=== PATIENT | female | born 1990 | race Caucasian/White ===

== ENCOUNTER 2017-01-19 17:00 | Inpatient (IN) | payer OTHER ==
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
--- NOTE | ~2017-01-19 | PN ---
Unit #: [id number] #: [id number] Patient: LAMAR CONTEH [id number] [facility] [address] [place] [address] [id number] I MR#: [id number] NAME: LAMAR CONTEH ROOM: P204 Age: 26 Sex: F Admission Date: 01/19/2017 : 1990 Attending Physician: Gm Andrew M.D. Admitting Physician: Gm Andrew M.D. Primary Care Physician: Primary Care Physician Maria Dolores VERNON PROGRESS NOTES DATE 01/21/2017 DISCUSSION Ms. Conteh is a 26-year-old white female who was seen today and chart was reviewed and case was discussed with the staff. She has been showing very negative attitude and behavior. She has been wanting to sign herself out and has been yelling and screaming and appears to be poorly motivated towards treatment. MENTAL STATUS EXAMINATION Young white female who was casually dressed with fair personal hygiene, appears to be in no acute distress or discomfort. She was awake and alert with intact orientation. Her mood was anxious with congruent affect. She denies any suicidal or homicidal ideations. Her insight and judgement remains slightly impaired. TREATMENT PLAN 1. We will continue her on her current medications and treatment protocol. We will monitor her response to the medication and make further adjustments as needed. 2. We will continue to follow up. Dictated by... Carolee Bledsoe/radha TD: 01/22/2017 02:27 JOB #: [id number] Unit #: [id number] #: [id number] Patient: LAMAR CONTEH PROGRESS NOTES Page 1 of 1 X Gm Andrew MD PROGRESS NOTE
--- NOTE | ~2017-01-19 | HP ---
Unit #: [id number] #: [id number] Patient: LAMAR CONTEH [id number] [place] [address] [id number] MR#: [id number] NAME: LAMAR CONTEH ROOM: P204 Age: 26 Sex: F Admission Date: 01/19/2017 : 1990 Attending Physician: Gm Andrew M.D. Admitting Physician: Gm Andrew M.D. Primary Care Physician: Primary Care Physician No HISTORY AND PHYSICAL HISTORY OF PRESENT ILLNESS The patient is a 26-year-old female admitted to [address] [place] [address] on 01/19/2017 for suicidal ideations and to detox from heroin. PAST MEDICAL HISTORY Right hip pain. PAST SURGICAL HISTORY Right hip. SOCIAL HISTORY She lives with her grandfather. She smokes 1 1/2 packs of cigarettes daily and has a history of polysubstance use including heroin. FAMILY MEDICAL HISTORY Noncontributory. ALLERGIES No known drug allergies. CURRENT MEDICATIONS Seroquel. REVIEW OF SYSTEMS CONSTITUTIONAL: No fever or chills. HEENT: Denies any sore throat, ear pain or runny nose. CARDIOVASCULAR: Denies chest pain, irregular heart rhythm or palpitations. CHEST: Denies shortness of breath or cough. No hemoptysis. GASTROINTESTINAL: Denies nausea, vomiting, diarrhea or chronic constipation. ENDOCRINE: Denies history of increased thirst or urination. No recent significant weight loss or gain. GENITOURINARY: Denies dysuria, frequency, or hematuria. SKIN: Denies any rashes. HEMATOLOGIC: Denies history of increased bleeding or bruising. MUSCULOSKELETAL: She complains of hip pain. NEUROLOGIC: Denies problems with vision or speech. No frequent, severe headaches. No numbness, tingling or weakness in any extremities. Denies loss of bladder or bowel control. PHYSICAL EXAM GENERAL: She is awake, alert and oriented in no acute distress. VITAL SIGNS: Temperature 98.1, heart rate 106, respiration 17, blood Unit #: [id number] #: [id number] Patient: LAMAR CONTEH pressure 129/83. HEIGHT: 5'2". WEIGHT: 160 pounds. SKIN: Warm and dry without rash or lesion. HEENT: Normocephalic. TMs not viewed. Oral and nasal passages clear. Conjunctivae clear. PERRLA. EOMs intact. NECK: Supple without lymphadenopathy or thyromegaly. HEART: Regular rate and rhythm without murmur. LUNGS: Clear. ABDOMEN: Soft, nontender. : Not done. EXTREMITIES: No evidence of cyanosis, clubbing or edema. Moves all without focal deficit. MUSCULOSKELETAL: Hip examination was deferred due to pain. NEUROLOGICAL: Grossly within normal limits. Cranial Nerves: II: Visual barba are intact. III, IV AND : Extraocular movements are intact. Pupils are equal, round and reactive to light. V: Facial sensation is grossly normal. VII: Facial movements and expression are normal. VIII: Auditory acuity grossly intact. IX, X: Uvula is midline. Phonation is normal. XI: Patient shrugs shoulders and turns head normally. XII: Tongue protrudes in the midline. Sensory and Motor Function: Sensory and motor sensation is grossly normal. Motor: moves all extremities well. IMPRESSION 1. Psychiatric admission. 2. Polysubstance abuse. 3. Nicotine dependence. 4. Right hip pain. RECOMMENDATIONS Psychiatric per psychiatrist. MEDICAL: No contraindication to participate in facility activities. E MEDICAL PROGNOSIS Good. MEDICAL CONDITION Stable. Dictated by... Lan Pollard/radha TD: 01/20/2017 21:34 JOB #: [id number] Unit #: [id number] #: [id number] Patient: LAMAR CONTEH HISTORY AND PHYSICAL Page 1 of 1 X VIV SEARS APRN HISTORY AND PHYSICAL
--- NOTE | ~2017-01-19 | DS ---
Unit #: [id number] #: [id number] [facility]: [facility] [id number] [facility] [address] [place] [address] [id number] MR#: [id number] NAME: LAMAR CONTEH ROOM: [facility] Age: 26 Sex: F Admission Date: 01/19/2017 : 1990 Discharge Date: 01/22/2017 Attending Physician: Gm Andrew M.D. Primary Care Physician: Primary Care Physician No DISCHARGE SUMMARY IDENTIFYING DATA Ms. Conteh is a 26-year-old single white female, with a history of substance abuse and dependence who was self-referred to the hospital. HISTORY OF PRESENT ILLNESS Please see initial psychiatric evaluation for details. PAST PSYCHIATRIC HISTORY Please see initial psychiatric evaluation for details. PAST MEDICAL HISTORY Please see initial psychiatric evaluation for details. HOSPITAL COURSE The patient was admitted to the Adult Chemical Dependency Unit at [facility] and was oriented to the hospital environment, and routine p.r.n. medications were initiated, and she was started on the opiate detox protocol; however, it was noted that the patient was seen to be showing many inappropriate attitude and behavior as from day 1 she asked me if I am going to give her Suboxone and I informed that we do not have Suboxone treatment program and is more detox oriented and from thereon she was seen to be very agitated, irritable, hostile, and not wanting to be here, wanting to leave and wanting to leave AGAINST MEDICAL ADVICE, and we had to initiate a 72-hour hold as she was not stable enough; however, she was then seen to be yelling, screaming, and cursing and rolling around stating that this is the worst place she has been to and that she does not feel like she wants to be here and was denying any suicidal thoughts and was not getting much benefit out of the treatment as she was not investing in treatment at all and was seen to be showing poor insight as well as negative attitude and did not appear to be ready for the detox and sobriety at this time and as such she was not seen to be a danger to herself or anyone else, it was decided that 72-hour hold would be dropped. The patient will be discharged from the facility. DISCHARGE DIAGNOSES Dover I Opiate dependence, moderate and acute withdrawal. Opiate induced mood disorder. Dover II Dover III None. Dover IV Moderate psychosocial stressors. Dover V Unit #: [id number] #: [id number] Patient: LAMAR CONTEH DISCHARGE MEDICATIONS None. CONDITION AT DISCHARGE Stable. PROGNOSIS Guarded. Dictated by... Carolee Bledsoe/juan manuel TD: 01/23/2017 05:59 JOB #: [id number] DISCHARGE SUMMARY Page 1 of 1 X Gm Andrew MD X DISCHARGE SUMMARY
[2017-01-21 09:42] LABS: BASOPHIL% 0.5 % (0-2.5); EOSINOPHIL% 0.5 % (0.0-7.0); HEMATOCRIT 38.3 % (35.0-45.0); LYMPHOCYTE# 2.2 X10e3 (1.0-3.5); LYMPHOCYTE% 28.7 % (17.0-45.0); MEAN CELL VOLUME 79.9 FL (83-96); MEAN CORPUSCULAR HEMOGLOBIN 25.1 PG (28-34); MEAN CORPUSCULAR HGB CONC 31.4 g/dL (30-36); MEAN PLATELET VOLUME 8.8 FL (6.5-11.5); MONOCYTE# 0.5 X10e3 (0-1.0); MONOCYTE% 7.2 % (3.0-12.0); NEUTROPHIL# 4.8 X10e3 (1.5-7.1); NEUTROPHIL% 63.1 % (40-75); PLATELET COUNT 263 X10e3 (140-420); RED BLOOD COUNT 4.79 X10e (3.90-5.30); RED CELL DISTRIBUTION WIDTH 16.9 % (11.0-15.5); WHITE BLOOD COUNT 7.6 X10e3 (4.0-10.5)
[2017-01-21 09:42] LABS: URINE APPEARANCE CLEAR; URINE BILIRUBIN NEG (NEG); URINE BLOOD NEG (NEG); URINE COLOR YELLOW; URINE GLUCOSE NEG (NEG); URINE KETONE 1+ (NEG); URINE LEUKOCYTE ESTERASE NEG (NEG); URINE NITRATE NEG (NEG); URINE PH 6.5 (5-8); URINE PROTEIN NEG (NEG); URINE SPECIFIC GRAVITY 1.016 (1.003-1.035)
[2017-01-21 10:04] LABS: DIFF IND NO
[2017-01-21 10:32] LABS: ALBUMIN SERUM 4.4 g/dL (3.5-5.0); BILIRUBIN,TOTAL 0.4 mg/dL (0.2-2.0); BUN/CREATININE RATIO 13.75; CALCIUM SERUM 9.5 mg/dL (8.4-10.2); CREATININE SERUM 0.8 mg/dL (0.6-1.4); GLOM FILT RATE Estimated 102.6 mL/min (>60); POTASSIUM 4.2 mmol/L (3.5-5.1); PROTEIN TOTAL SERUM 7.4 g/dL (6.0-8.3)
[2017-01-21 10:51] LABS: AMPHETAMINE POS (NEG); BARBITURATES NEG (NEG); BENZODIAZEPINES NEG (NEG); COCAINE NEG (NEG); MARIJUANA NEG (NEG); OPIATES POS (NEG); TRICYCLIC ANTIDEPRESSANTS NEG (NEG); U METHADONE NEG (NEG)
== END 2017-01-22 09:38 | disposition home or self-care (01) | DRG 897 ==
LOC: P2S 20:23
PROVIDERS: Psychiatry & Neurology Psychiatry
DX: F11.23 Opioid dependence with withdrawal (principal); F11.24 Opioid dependence with opioid-induced mood disorder; F17.210 Nicotine dependence, cigarettes, uncomplicated
CPT/HCPCS: 80053; 80307; 81003; 84703; 85025; 86592; J2550